=== PATIENT | male | born 1955 | race Caucasian/White ===

== ENCOUNTER 2017-03-22 14:33 | Emergency (ER) | payer OTHER, MEDICARE ==
[~2017-03-22 14:33] MED LIST: BACLOFEN20 MG PO; DULCOLAX5 MG PO; DULERA 200 MCG8.8 GM IH; MIDODRINE5 MG PO; MOBIC15 MG PO; NICOTINE TRANSD21 MG TOP; PROTONIX40 MG PO; REGLAN5 MG PO; TUDORZA PRESS400 MCG IH; VENTOLIN HFA8 GM IH; WELLBUTRIN XL300 MG PO
== END 2017-03-22 15:40 | disposition home or self-care (01) ==
LOC: ER 14:33
DX: S53.005A Unspecified dislocation of left radial head, initial encounter (principal); I48.91 Unspecified atrial fibrillation; F17.210 Nicotine dependence, cigarettes, uncomplicated; Z79.899 Other long term (current) drug therapy; X50.0XXA Overexertion from strenuous movement or load, initial encounter
CPT/HCPCS: 73080